=== PATIENT | female | born 1955 | race Caucasian/White ===

== ENCOUNTER 2024-11-29 17:41 | Inpatient (IN) | payer MEDICARE ==
[~2024-11-29] VITALS: Ht 149.9 cm; Wt 53.6 kg
[2024-11-29 18:56] LABS: BASOPHILS ABSOLUTE AUTO 0.06 K/mm3 (0.00-0.23); BASOPHILS PERCENT AUTO 1 % (0-2); EOSINOPHILS ABSOLUTE AUTO 0.02 K/mm3 (0.00-0.68); EOSINOPHILS PERCENT AUTO 0 % (0-6); Hematocrit 44.2 % (33.0-51.0); Hemoglobin 15.9 g/dL (11.5-16.0); IMMATURE GRAN ABSOLUTE AUTO 0.03 K/mm3 (0.00-0.10); IMMATURE GRAN PERCENT AUTO 0 % (0-1); LYMPHOCYTES ABSOLUTE AUTO 2.57 K/mm3 (0.84-5.20); LYMPHOCYTES PERCENT AUTO 24 % (21-46); MONOCYTES ABSOLUTE AUTO 1.04 K/mm3 (0.16-1.47); MONOCYTES PERCENT AUTO 10 % (4-13); Mean Corpuscular HGB 31.5 pg (26.0-34.0); Mean Corpuscular Volume 88 fL (80-100); Mean Platelet Volume 9.5 fL (9.1-12.4); NEUTROPHILS ABSOLUTE AUTO 7.06 K/mm3 (1.96-9.15); NEUTROPHILS PERCENT AUTO 66 % (41-73); Platelet Count 229 K/mm3 (150-400); RDW Coefficient Variation 12.5 % (11.7-14.2); RDW Standard Deviation 39.8 fL (35.1-46.3); Red Blood Cell Count 5.04 M/mm3 (3.80-5.20); White Blood Cell Count 10.78 K/mm3 (4.00-11.30)
[2024-11-29 19:07] LABS: CORONAVIRUS COVID-19 AG Negative (NEGATIVE); INFLUENZA A AG Negative (NEGATIVE); INFLUENZA B AG Negative (NEGATIVE)
[2024-11-29 19:10] LABS: Albumin, Blood 3.9 g/dL (3.4-5.0); Bilirubin, Total 0.9 mg/dL (0.1-1.0); Bun/Creatinine Ratio 25.7 (12.0-20.0); Calcium, Blood 9.9 mg/dL (8.5-10.1); Creatinine, Blood 0.86 mg/dL (0.40-1.00); Globulin, Blood 3.8 g/dL (2.2-4.0); Magnesium, Blood 2.3 mg/dL (1.6-2.4); Potassium, Blood 3.8 mmol/L (3.5-5.5); Total Protein, Blood 7.7 g/dL (6.4-8.2)
[2024-11-29 19:40] LABS: Source, Urine Clean Catch
[2024-11-29 19:43] LABS: Appearance, Urine Clear (Clear); Bilirubin, Urine Neg (Neg); Blood, Urine 3+ (Neg); Color, Urine Yellow (P-Yellow); Glucose Qualitative, Urine Neg (Neg); Ketones, Urine 3+ (Neg); Leukocyte Esterase, Urine Neg (Neg); Nitrite, Urine Neg (Neg); Protein, Urine 2+ (Neg); Specific Gravity, Urine 1.025 (1.003-1.022); Urobilinogen, Urine 1+ (Normal)
[2024-11-29 19:50] LABS: White Blood Cells, Urine 0-2 /hpf (0-5)
[2024-11-29 19:51] LABS: Bacteria Rare /hpf; Squamous Epithelial Cells Rare /hpf (Few)
[2024-11-29 20:00] LABS: U Amphetamine Screen Not Detected; U Barbituate Screen Not Detected; U Benzodiazapine Screen Not Detected; U Buprenorphine Screen Not Detected; U Cannabinoids Screen DETECTED; U Cocaine Screen Not Detected; U Methadone Screen Not Detected; U Methamphetamine Screen Not Detected; U Opiates Screen Not Detected; U Oxycodone Screen Not Detected; U Phencyclidine Screen Not Detected
[2024-11-29] MEDS ORDERED: Aspirin 81 MG Chew PO ONE (21:30)
[2024-11-30] VITALS (8 sets, daily range): BP systolic 119–160; BP diastolic 81–127
[2024-11-30] MEDS ORDERED: FLU VACC TS2024-25(6MOS UP)/PF 45 MCG/0.5 ML SYRINGE IM ONE (00:35)
[2024-11-30] MEDS ORDERED: Lactated Ringer's 1,000 ML IV SCH (00:35)
[2024-11-30] MEDS ORDERED: Aspirin325 MG PO (00:42)
[2024-11-30] MEDS ORDERED: FentaNYL Citrate 50 MCG/ML 2 ML Injection IV PRN (01:35)
[2024-11-30] MEDS ORDERED: Nicotine 21 MG PATCH TOP SCH (01:35)
[2024-11-30 05:18] LABS: BASOPHILS ABSOLUTE AUTO 0.07 K/mm3 (0.00-0.23); BASOPHILS PERCENT AUTO 1 % (0-2); EOSINOPHILS ABSOLUTE AUTO 0.04 K/mm3 (0.00-0.68); EOSINOPHILS PERCENT AUTO 0 % (0-6); Hematocrit 42.4 % (33.0-51.0); Hemoglobin 15.3 g/dL (11.5-16.0); IMMATURE GRAN ABSOLUTE AUTO 0.06 K/mm3 (0.00-0.10); IMMATURE GRAN PERCENT AUTO 1 % (0-1); LYMPHOCYTES PERCENT AUTO 29 % (21-46); MONOCYTES ABSOLUTE AUTO 1.33 K/mm3 (0.16-1.47); MONOCYTES PERCENT AUTO 13 % (4-13); Mean Corpuscular HGB 31.2 pg (26.0-34.0); Mean Corpuscular HGB Conc 36.1 g/dL (31.5-36.5); Mean Corpuscular Volume 87 fL (80-100); Mean Platelet Volume 9.9 fL (9.1-12.4); NEUTROPHILS ABSOLUTE AUTO 5.99 K/mm3 (1.96-9.15); NEUTROPHILS PERCENT AUTO 56 % (41-73); Platelet Count 182 K/mm3 (150-400); RDW Coefficient Variation 12.6 % (11.7-14.2); RDW Standard Deviation 39.8 fL (35.1-46.3); White Blood Cell Count 10.59 K/mm3 (4.00-11.30)
[2024-11-30 05:29] LABS: Albumin, Blood 3.7 g/dL (3.4-5.0); Albumin/Globulin Ratio 1.1 (0.8-1.8); Bilirubin, Total 1.1 mg/dL (0.1-1.0); Bun/Creatinine Ratio 28.8 (12.0-20.0); Calcium, Blood 9.3 mg/dL (8.5-10.1); Creatinine, Blood 0.73 mg/dL (0.40-1.00); Globulin, Blood 3.5 g/dL (2.2-4.0); Potassium, Blood 3.7 mmol/L (3.5-5.5); Total Protein, Blood 7.2 g/dL (6.4-8.2)
--- NOTE | 2024-11-30 05:59 | NUR ---
NEW ADMIT THIS SHIFT (52696; A&OX2-3 FORGETFUL, PLEASANT & COOPERATIVE W/CARE, CONT THIS SHIFT TO BSC (ST/PIVOT 1P) MEDICATED X1 FOR C/O L ANKLE PAIN, SLEEPING AT THIS TIME CALL LIGHT IN REACH (FORGETS TO USE), BED ALARM ACTIVE, WILL CONT TO MONITOR UNTIL REPORT GIVEN TO ONCOMING NURSE.
[2024-11-30] MEDS ORDERED: Clopidogrel Bisulfate 75 MG Tab PO SCH (09:00)
[2024-11-30] MEDS ORDERED: Aspirin 81 MG Chew PO SCH (09:00)
[2024-11-30] MEDS ORDERED: Enoxaparin 40 MG/0.4 ML SYR SC SCH (09:00)
[2024-11-30] MEDS ORDERED: Atorvastatin 40 MG Tab PO SCH (09:00)
--- NOTE | 2024-11-30 15:33 | NUR ---
NOTIFIED DR. FLORES OF IMAGING RESULTS AND TO REVIEW; PER ANKLE XRAY ADVISED TO CALL [facility]; CALL MADE TO DR. MITCHELL HE ADVISED TO CALL DR. MCDANIEL; DR. MCDANIEL NOT AVAILABLE BASED OFF OF CONSULT LIST; CALLED PODIATRY ONCALL DR. STEVENS HE ADVISED [facility] SO CALLED DR. MITCHELL BACK AND NOTIFIED HIM HE STATES THAT HE WILL CALL AND FOLLOW UP.
--- NOTE | 2024-11-30 17:11 | NUR ---
SHIFT SUMMARY: PATIENT IS A&OX2-3; UNSURE OF PLACE OTHER THAN SHE IS IN A HOSPITAL, SHE DOES NOT USE HER CALL LIGHT, SHE WILL SET OFF THE BED ALARM. SHE VOICES THAT SHE NEEDS TO VOID; PATIENT HAS BEEN RETAINING URINE; SHE HAS BEEN STRAIGHT CATHETERIZED X2; PER DR. FLORES TO PLACE A KUMARI IF SHE NEEDS TO BE STRAIGHT CATHETERIZED 3 TIMES. PATIENT SCANNED AFTER EXPRESSING THAT SHE NEEDS TO PEE WITHOUT VOIDING; BLADDER SCAN ONLY SHOWED 12ML OF VOLUME OF BLADDER. SHE IS NOW COMPLAINING OF SUPRABUPIC PAIN FROM BLADDER SCANNING; DR. FLORES NOTIFIED. PATIENT UNDER GOING HER ECHO RIGHT NOW, AWAITING A RESPONSE FROM DR. MITCHELL ON PLAN FOR HER ANKLE FRACTURE. SHE IS ALERT, LINING PRESSER BEDSIDE, NO SIGNS OR SYMPTOMS OF DISTRESS, NO EVENTS ON TELE, BED ALARM BEING USED, PLAN OF CARE ONGOING.
--- NOTE | 2024-11-30 18:03 | NUR ---
PATIENT'S SISTER TERESA; SHE EXPRESSED CONCERNS WITH THE PATIENT AND LONG AND CURRENT HISTORY OF DRUG USE; MAINLY METH. SHE STATES THAT THE PATIENT HAS DEMENTIA AND NEEDS HELP. GAVE THE SISTER AN UPDATE ON THE PATIENT'S CURRENT STATUS AND PLAN.
[2024-12-01] VITALS (7 sets, daily range): BP systolic 120–173; BP diastolic 77–105
[2024-12-01] MEDS ORDERED: NS 1,000 ML IV SCH (01:25)
[2024-12-01 05:33] LABS: Source, Urine Foley catheter
[2024-12-01 05:38] LABS: Appearance, Urine Hazy (Clear); Bilirubin, Urine Neg (Neg); Blood, Urine 5+ (Neg); Color, Urine Yellow (P-Yellow); Glucose Qualitative, Urine Neg (Neg); Ketones, Urine 4+ (Neg); Leukocyte Esterase, Urine 1+ (Neg); Nitrite, Urine Neg (Neg); Protein, Urine 3+ (Neg); Urobilinogen, Urine 2+ (Normal)
[2024-12-01 06:26] LABS: Red Blood Cells, Urine 50-100 /hpf (0-2)
--- NOTE | 2024-12-01 06:30 | NUR ---
A&O TO SELF AND THAT SHE IS IN A HOSPITAL. PT HAS BEEN ATTEMPTING TO GET OUT OF BED T/O THE SHIFT C/O NEEDING TO VOID AND WAS UNABLE, BLADDER SCANS WLD INDICATE MINIMAL URINE; HOWEVER PT WOULD CONTINUE TO KEEP TRYING TO GET UP TO GO. AT 0100 BLADDER SCAN INDICATED 177 MLS, PT WAS UNABLE TO VOID AND HADN'T VOIDED IN 9 HOURS SO DID STRAIGHT CATH AND OBTAINED 200MLS JOSH URINE. PROVIDER NOTIVIED AND KUMARI PLACED AND IV FLUIDS ITITIATED. PT STILL CONTINUES TO ATTEMPT TO BED EXIT TRYING TO VOID, KUMARI IS DRAINING HAZY URINE. BED ALARM ACTIVE, WILL CONT TO MONITOR.
[2024-12-01 06:33] LABS: Squamous Epithelial Cells Few /hpf (Few)
[2024-12-01 06:34] LABS: Amorphous Mod (0-Heavy); Bacteria Mod /hpf; Mucus Heavy (0-Heavy); Transitional Epithelial Cells Few /hpf (0-Rare)
[2024-12-01] MEDS ORDERED: CefTRIAXone Sodium 1,000 MG in NS 100 ML IV SCH (09:00)
[2024-12-01] MEDS ORDERED: Lactobacil 2-S.Thermo-Bifido 1 1 Cap PO SCH (09:00)
[2024-12-02 03:01] VITALS: BP 146/80
[2024-12-02 07:25] VITALS: BP 141/96
[2024-12-02] MEDS ORDERED: NS 250 ML IV PRN (10:45)
[2024-12-02] MEDS ORDERED: Tobramycin 0.3% Opth Soln 5 ML LEFTEYE SCH (12:29)
[2024-12-02 15:28] VITALS: BP 124/98
[2024-12-02] MEDS ORDERED: Naproxen 250 MG TAB PO SCH (17:00)
--- NOTE | 2024-12-02 17:24 | NUR ---
SHIFT SUMMARY: NO EVENTS OR CHANGES WITH THE PATIENT THROUGHOUT THE SHIFT. SHE WILL CONTINUE TO PERIODICALLY IMUPULSIVELY GET OUT OF BED SETTING OFF THE ALARM DUE TO NEEDING TO GO THE RESTROOM. WHEN PATIETN STATES THAT SHE NEEDS TO VOID SHE IS REMINDED THAT SHE HAS A KUMARI CATHETER. SHE IS MORE MINDFUL OF HER ANKLE FRACTURE AND EXPRESSES THE NEED TO KEEP WEIGHT OFF OF IT. SHE IS AWARE SHE HAD A STROKE AND IS MORE ORIENTED TODAY THAN THE PREVIOUS DAYS DUE TO BE ABLE TO STATE SHE IS IN [place]. SHE IS PLEASANT, COOPERATIVE, AND REDIRECTABLE. SHE LETS HER NEEDS KNOWN. SHE EXPRESSED PAIN OF HER L ANKLE ONCE TODAY AND WAS MEDICATED. SHE HAS BEEN NAPPING MOST OF THE AFTERNOON; RESPIRATIONS EVEN AND UNLABORED, NO SIGNS OR SYMPTOMS OF DISTRESS. BED ALARM SET, CALL LIGHT WITHIN REACH, PLAN OF CARE ONGOING.
[2024-12-02 19:59] VITALS: BP 137/85
[2024-12-03 04:02] VITALS: BP 144/73
--- NOTE | 2024-12-03 05:09 | NUR ---
SHIFT SUMMARY: PT AOX2-[address] AND SELF, FORGETFUL WHY SHES HERE AND SOME MILD CONFUSION/ FORGETFULNESS. PT COOPERATIVE IN CARE BUT COMPLAINED OF NOT WANTING TO STAND DUE TO THE PAIN IN HER ANKLE. MEDICATED PER EMR. PT ELECTED FOR BEDPAN AND HAD SMALL BM. KUMARI PLACED AND HAVING SMALL AMOUNT OF OUTPUT. PT TOLERATING MEDICATIONS WELL. NO ACUTE EVENTS OVERNIGHT. PT IN BED SLEEPING, BED IN LOWEST POSITION, CALL LIGHT IN REACH, CONTINUING CARE.
[2024-12-03 07:35] VITALS: BP 136/84
[2024-12-03] MEDS ORDERED: HYDROcodone 5-APAP 325 TAB PO PRN (13:40)
[2024-12-03 15:08] VITALS: BP 132/93
--- NOTE | 2024-12-03 16:57 | NUR ---
SUMMARY PT HAS SLEPT FOR MAJORITY OF THIS SHIFT. WAKES FOR MEALS. PT IS PAINFUL IN LLE AND HER BACK. BED BATH PROVIDED. PT NOT EATING WELL THIS SHIFT. PER EXECUTIVE HOUSEKEEPER, PT IS MORE SLEEPY TODAY THAN YESTERDAY. Q 2HRS TURNS AND SUPPORT WITH PILLOWS PROVIDED. KUMARI CATHETER IN PLACE AND DRAINING TO GRAVITY. ANSWERS QUESTIONS APPROPRIATELY, ABLE TO EXPRESS NEEDS WHILE AWAKE. TREATED PAIN PER EMAR.
[2024-12-03 20:19] VITALS: BP 146/91
[2024-12-04 04:45] VITALS: BP 138/94
--- NOTE | 2024-12-04 05:39 | NUR ---
SUMMARY: PT A/OX3 AND AWARE OF SITUATION BUT WAS MILDLY FORGETFUL TO TOWN AND DATE. SHE HAS BED ALARM ON FOR POSSIBILE IMPULSIVITY AND FALL RISK BUT DIDN'T MAKE ANY ATTEMPTS OOB BY SELF. PT IS ABLE TO GRADUALLY REPOSITION SELF IN BED AND TURN SCHEDULE WAS MAINTAINED. 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 PT LACKS COORDINATION AND HAS DIFFICULTY FOLLOWING INSTRUCTION AT TIMES SO IS BEDREST PRN FOR SAFETY. KUMARI FOR RETENTION IS PATENT/DRAINING. PILLS TOLERATED WHOLE W/WATER AND NO SWALLOW ISSUES OBSERVED. VSS/AFEBRILE, NO ACUTE CHANGES. SNF NEEDED UPON D/C. WCTM AND REPORT TO DAY RN.
[2024-12-04 07:36] VITALS: BP 138/87
[2024-12-04] MEDS ORDERED: Aspir 8181 MG PO (14:40)
[2024-12-04] MEDS ORDERED: ATOR80 PO (14:40)
[2024-12-04] MEDS ORDERED: HYDR1TAB94 PO (14:41)
[2024-12-04] MEDS ORDERED: NAPR500 PO (14:43)
[2024-12-04] MEDS ORDERED: NICO21TP TOP (14:44)
[2024-12-04] MEDS ORDERED: Tobrex5 ML LEFTEYE (14:45)
[2024-12-04] MEDS ORDERED: LOSA25 PO (14:45)
--- NOTE | 2024-12-04 15:19 | NUR ---
REPORT PROVIDED TO [facility] STAFF @ [id number]
--- NOTE | 2024-12-04 16:04 | NUR ---
DISCHARGE: PT D/C @1550 VIA WHEELCHAIR WITH TRANSPORT TO [facility]. REPORT GIVEN TO [facility] STAFF AROUND 1515. CALLBACK NUMBER PROVIDED. IV REMOVED BY WATCHMAKER APPRENTICE W/O COMPLICATIONS. KUMARI SENT WITH PT. STATED TO STAFF TO START BLADDER TRAIN WITHIN 3-5 DAYS. HARD SCRIPT FOR [facility] SENT WITH TRANSPORT IN PT PACKET.
== END 2024-12-04 15:52 | DRG 66 ==
LOC: ER 17:41 → MEDS 17:42
PROVIDERS: Student in an Organized Health Care Education/Training Program; ADMIT Internal Medicine
PROC: 0T9B70Z Drainage of Bladder with Drainage Device, Via Natural or Artificial Opening (ICD-10-PCS; principal; 2024-11-29)
DX: I63.9 Cerebral infarction, unspecified (principal); S82.842A Displaced bimalleolar fracture of left lower leg, initial encounter for closed fracture; W18.30XA Fall on same level, unspecified, initial encounter; F17.210 Nicotine dependence, cigarettes, uncomplicated; R29.6 Repeated falls; R47.1 Dysarthria and anarthria; R91.1 Solitary pulmonary nodule; R33.9 Retention of urine, unspecified; R29.706 NIHSS score 6; F12.90 Cannabis use, unspecified, uncomplicated; I10 Essential (primary) hypertension; R53.1 Weakness
CPT/HCPCS: 36415; 70450; 70496; 70498; 70551; 71045; 73600; 73610; 74177; 80053; 81001; 83735; 85025; 87086; 87428-QW; 92526; 92610; 93005; 93010; 93306; 96372; 96374; 97112; 97116; 97162; 97165; 97530; 97535; 99285-25; A9270; G0378; J0696; J1650; J3010; J7030; J7120; Q9967

== ENCOUNTER 2025-07-06 21:03 | Emergency (ER) | payer MEDICARE, OTHER ==
[~2025-07-06] VITALS: Ht 160 cm; Wt 68.0 kg
[~2025-07-06 21:03] MED LIST: ATOR80 PO; Aspir 8181 MG PO; Aspirin325 MG PO; HYDR1TAB94 PO; LOSA25 PO; NAPR500 PO; NICO21TP TOP; Tobrex5 ML LEFTEYE
[2025-07-06] MEDS ORDERED: HYDROcodone 7.5-APAP 325 TAB PO ONE (22:25)
[2025-07-06] MEDS ORDERED: Percocet 5-3251 EACH PO (22:56)
[2025-07-06] MEDS ORDERED: RX Prepack 6 Tabs Oxycodone 5mg UD ONE (23:00)
[2025-07-06] MEDS ORDERED: RX Prepack 2 Tabs Ondansetron ODT 4MG UD ONE (23:00)
[2025-07-06 23:10] VITALS: BP 145/99
== END 2025-07-06 23:11 | disposition home or self-care (01) ==
LOC: ER 21:03
DX: S82.852A Displaced trimalleolar fracture of left lower leg, initial encounter for closed fracture (principal); W18.30XA Fall on same level, unspecified, initial encounter; Z79.82 Long term (current) use of aspirin; Z79.899 Other long term (current) drug therapy
CPT/HCPCS: 29515; 73610; 99283-25; A9270